=== PATIENT | male | born 1985 | race African-American/Black ===

== ENCOUNTER 2022-02-21 04:12 | Emergency (ER) | payer OTHER ==
[~2022-02-21] VITALS: Ht 180.3 cm; Wt 68.9 kg
[2022-02-21] MEDS ORDERED: LIDOCAINE HCL 1% 20 ML VIAL ONE (04:24)
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
[2022-02-21 04:37] LABS: HEMATOCRIT 49.3 % (36.7-47.1); MEAN CORPUSCULAR HEMOGLOBIN 32.2 uug (23.8-33.4); MEAN CORPUSCULAR VOLUME 96.1 fL (73.0-96.2); PLATELET COUNT (AUTO) 239 K/uL (152-348)
--- NOTE | 2022-02-21 04:53 | NUR ---
Covid swab taken to lab.
[2022-02-21 04:57] LABS: CARBON DIOXIDE 27 mmol/L (21-32); CHLORIDE 99 mmol/L (98-107); CREATININE 0.8 mg/dL (0.6-1.3); GLUCOSE 90 mg/dL (74-106); POTASSIUM 4.4 mmol/L (3.5-5.1); UREA NITROGEN, BLOOD 10 mg/dL (7-18)
[2022-02-21] MEDS ORDERED: LIDOCAINE HCL 1% 20 ML VIAL IJ ONE (07:00)
--- NOTE | 2022-02-21 07:00 | NUR ---
Urine sent to lab.
[2022-02-21 07:13] LABS: *BILIRUBIN,URIN NEGATIVE (NEGATIVE); *BLOOD, URINE NEGATIVE (NEGATIVE); *CLARITY,URINE CLEAR (CLEAR); *COLOR,URINE YELLOW (YELLOW); *KETONES,URINE NEGATIVE (NEGATIVE); *UROBILINOGEN,URINE 0.2 E.U./dl (NORMAL); LEUKOCYTE ESTERASE ,URINE NEGATIVE (NEGATIVE); NITRITE, URINE NEGATIVE (NEGATIVE); PH,URINE 5.5 (5.0-8.0); UGLUCOSE NEGATIVE (NEGATIVE)
--- NOTE | 2022-02-21 07:18 | NUR ---
Report given to DALTON Chauhan.
[2022-02-21 07:30] LABS: *AMPHETAMINE, URINE NEGATIVE (NEGATIVE); *CANNABINOID, URINE NEGATIVE (NEGATIVE); *COCCAINE, URINE NEGATIVE (NEGATIVE); *OPIATE, URINE NEGATIVE (NEGATIVE); *PHENCYCLIDINE SCREEN,URINE NEGATIVE (NEGATIVE)
--- NOTE | 2022-02-21 07:30 | NUR ---
Received pt resting in gurney with no s/s of distress noted. Sitter is at bedside for 1:1 observation. Pt is on a 5150 Hold, disposition pending.
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
--- NOTE | 2022-02-21 09:14 | NUR ---
Annette (social servies) spoke with the patient and is working on placement. She stated she has faxed information to multiple facilities.
--- NOTE | 2022-02-21 10:40 | NUR ---
Received telephone call from [facility], requested information provided. She stated she will call back when a bed is available.
--- NOTE | 2022-02-21 10:40 | NUR ---
Repeat alcohol level faxed to [facility] as requested.
--- NOTE | 2022-02-21 11:10 | NUR ---
Pt has been accepted at [facility]. Dr. Wooten accepting, pt going to [facility], intake dept. Called [facility] for transport, ETA [id number].
--- NOTE | 2022-02-21 13:59 | NUR ---
Pt trans to [facility] via [facility]. NAD noted, SBAR report and original 5150 hold given to EMT.
== END 2022-02-21 14:00 ==
LOC: ER 04:30
DX: R45.851 Suicidal ideations (principal); F17.210 Nicotine dependence, cigarettes, uncomplicated; S51.812A Laceration without foreign body of left forearm, initial encounter; X78.1XXA Intentional self-harm by knife, initial encounter; Y92.89 Other specified places as the place of occurrence of the external cause; Z86.19 Personal history of other infectious and parasitic diseases; Z88.0 Allergy status to penicillin; F32.A Depression, unspecified; F41.9 Anxiety disorder, unspecified; Z20.822 Contact with and (suspected) exposure to COVID-19
CPT/HCPCS: 80048; 81003; 85025; 87426; 36415; 99285; 80320 ×2; 80307; 12002; J3490; A4663; G0480